=== PATIENT | male | born 1985 | race Caucasian/White ===

== ENCOUNTER 2023-02-13 01:15 | Emergency (ER) | payer BC ==
[~2023-02-13] VITALS: Ht 180.3 cm; Wt 88.5 kg
--- NOTE | 2023-02-13 01:45 | NUR ---
PT AMB TO 4B WITH CP X 2 DAYS . PT PLACED ON MONITOR.
[2023-02-13] MEDS ORDERED: LORAZEPAM 0.5 MG TABLET PO ONE (02:15)
[2023-02-13] MEDS ORDERED: LORAZEPAM 1 MG TABLET ONE (02:21)
[2023-02-13] MEDS ORDERED: KETOROLAC TROMETHAMINE 15 MG INJ IVP ONE (02:30)
[2023-02-13] MEDS ORDERED: ASPIRIN 81 MG TAB.CHEW PO ONE (02:30)
--- NOTE | 2023-02-13 02:34 | NUR ---
SL 20 gauge placed to RAC. Dry Press Operator Helper at bedside. Blood obtained and specimens sent to lab.
[2023-02-13] MEDS ORDERED: KETOROLAC TROMETHAMINE 15 MG INJ ONE (02:37)
[2023-02-13] MEDS ORDERED: ASPIRIN 81 MG TAB.CHEW ONE (02:37)
[2023-02-13 02:44] LABS: MEAN CORPUSCULAR HEMOGLOBIN 32.5 uug (23.8-33.4); MEAN CORPUSCULAR VOLUME 92.9 fL (73.0-96.2); PLATELET COUNT (AUTO) 279 K/uL (152-348)
[2023-02-13 02:55] LABS: CREATININE 1.2 mg/dL (0.6-1.3); POTASSIUM 3.8 mmol/L (3.5-5.1)
--- NOTE | 2023-02-13 03:00 | NUR ---
No change from previous assessment.
[2023-02-13 03:08] LABS: BILIRUBIN,TOTAL 0.6 mg/dL (0.2-1.0); TOTAL PROTEIN, SERUM 7.5 g/dL (6.4-8.2)
--- NOTE | 2023-02-13 03:13 | NUR ---
US Tech at bedside for US.
[2023-02-13] MEDS ORDERED: IV NORMAL SALINE 250 ML IV ONE (03:23)
[2023-02-13] MEDS ORDERED: IOHEXOL 350 100 ML INFUS..BTL ONE (03:23)
[2023-02-13] MEDS ORDERED: SWABABLE VALVE TRANSFER SET EA MC ONE (03:23)
--- NOTE | 2023-02-13 03:37 | NUR ---
Twister Operator at bedside. Blood obtained and specimens sent to lab.
--- NOTE | 2023-02-13 03:38 | NUR ---
Patient to CT via WC & CT Trch.
--- NOTE | 2023-02-13 05:00 | NUR ---
No change from previous assessment.
--- NOTE | 2023-02-13 06:30 | NUR ---
No change from previous assessment.
--- NOTE | 2023-02-13 07:10 | NUR ---
Care endorsed to RUFINA Aldridge.
--- NOTE | 2023-02-13 07:19 | NUR ---
Patient sleeping at this time, no s/s of any distress noted awaiting CT results, will continue to monitor.
--- NOTE | 2023-02-13 07:34 | NUR ---
ER provider at bedside talking with patient, aware okay for discharge home with family. Awaiting ACI, HL removed at this time.
[2023-02-13] MEDS ORDERED: AMOX-430 PO (07:35)
[2023-02-13] MEDS ORDERED: AZIT250T13 PO (07:35)
[2023-02-13 07:39] VITALS: BP 115/86; O2SAT 99
--- NOTE | 2023-02-13 07:39 | NUR ---
ACI given remains stable.
== END 2023-02-13 07:40 | disposition home or self-care (01) ==
LOC: ER 01:32
DX: R07.89 Other chest pain (principal)
CPT/HCPCS: 99285; 96374; 71275; 93971; 80053; 83880; 85025; 85379; 85610; 84484 ×2; 36415; J1885; Q9967; A4663